=== PATIENT | female | born 1935 | race Caucasian/White ===

== ENCOUNTER 2018-06-17 11:01 | Day surgery (SDC) | payer MEDICARE, OTHER ==
[~2018-06-17] VITALS: Ht 172.7 cm; Wt 59.0 kg
[~2018-06-17 11:01] MED LIST: ASPIR 8181 MG PO; CALCIUM 600 +1 EAC3 PO; COMBIGAN EYE DRO5 ML OD; DORZOLAMIDE 2%10 ML OP; FISH OIL 1,2001 EACH PO; LIPITOR10 MG PO; NORVASC10 MG PO; OCUVITE TABLET1 EAC1 PO; PROLIA60 MG/1 ML SUB-Q; VITAMIN D31000 UNIT PO; XALATAN2.5 ML OD
--- NOTE | 2018-06-17 13:03 | NUR ---
06/17/18 1303 Babita Vincent 1235 PT ARRIVED IN PACU SLEEPY LAYING PRONE ON STRETCHER. BANDAID CDI ON L ILIAC CREST. NO C/O'S. 1250 RESTING.
== END 2018-06-17 13:58 | disposition home or self-care (01) ==
LOC: DS 11:01
PROVIDERS: Specialist
PROC: 079T3ZX Drainage of Bone Marrow, Percutaneous Approach, Diagnostic (ICD-10-PCS; 2018-06-17)
PROC: 07DR3ZX Extraction of Iliac Bone Marrow, Percutaneous Approach, Diagnostic (ICD-10-PCS; principal; 2018-06-17 12:00)
DX: C90.00 Multiple myeloma not having achieved remission (principal); M81.0 Age-related osteoporosis without current pathological fracture; D53.9 Nutritional anemia, unspecified; D72.819 Decreased white blood cell count, unspecified; Z79.899 Other long term (current) drug therapy
CPT/HCPCS: 80053; 82232; 83615; 83883; 85025; 88184; 88185; 88305; 88311; 88313; 88341; 88342; 88360; 88364; 88365; G0500; J2250; J3010; J7120

== ENCOUNTER 2021-06-03 10:49 | Emergency (ER) | payer MEDICARE, OTHER ==
[~2021-06-03] VITALS: Ht 172.7 cm; Wt 56.2 kg
[2021-06-03] MEDS ORDERED: AMLODIPINE BESYL5 MG PO (13:48)
--- NOTE | 2021-06-03 18:44 | EKG ---
[facility] [address] [facility] [place] [address] Signed Normal sinus rhythm Right bundle branch block Left anterior fascicular block Bifascicular block Abnormal ECG No previous ECGs available Confirmed by KHADAR HALE MD ([id number] on 06/03/2021 6:43:54 PM Electronically Signed By: KHADAR HALE MD 06/03/21 1844 PATIENT NAME: DAYLIN BURNETT Electrocardiogram DATE OF : 37 PHYSICIAN: KHADAR HALE MD REPORT #: [id number] REPORT IS CONFIDENTIAL AND NOT TO BE RELEASED WITHOUT AUTHORIZATION
== END 2021-06-03 14:21 | disposition home or self-care (01) ==
LOC: ED 10:49
DX: R55 Syncope and collapse (principal); Z91.018 Allergy to other foods; Z91.09 Other allergy status, other than to drugs and biological substances; Z79.899 Other long term (current) drug therapy
CPT/HCPCS: 36415; 80053; 81001; 85025; 93005; 93010; 99284-25

== ENCOUNTER 2023-12-21 10:51 | Emergency (ER) | payer MEDICARE ==
[~2023-12-21] VITALS: Ht 172.7 cm; Wt 61.7 kg
[~2023-12-21 10:51] MED LIST changes: +AMLODIPINE BESYL5 MG PO
[2023-12-21 11:18] LABS: BASOPHILS 0.1 % (0-2); EOSINOPHILS 0.4 % (0-6); HEMATOCRIT 32.7 % (35.0-50.0); HEMOGLOBIN 11.2 g/dL (12.0-18.0); LYMPHOCYTES 30.5 % (24-44); MCH 35.3 (27-36); MCHC 34.2 g/dl (30-36); MCV 103.2 fl (81-99); MONOCYTES 8.1 % (0-12); NEUTROPHILS 60.9 % (39-80); PLATELET COUNT 169 K/uL (140-440); RBC 3.17 M/ul (4.3-5.7); RDW 13.4 (10.5-15.0)
[2023-12-21 11:37] LABS: ALBUMIN/GLOBULIN RATIO 0.7 (1.1-2.4); ANION GAP 6.9 (7-21); BILIRUBIN, TOTAL 0.3 ng/dL (0.2-1.0); BUN/CREATININE RATIO 20.38 (6.0-28.6); CALCIUM 8.8 mg/dL (8.5-10.1); CREATININE, SERUM 1.03 mg/dL (0.55-1.02); POTASSIUM 3.9 mmol/L (3.5-5.1); PROTEIN, TOTAL 7.3 g/dL (6.4-8.2)
[2023-12-21 11:44] LABS: MAGNESIUM 1.9 mg/dL (1.8-2.4)
[2023-12-21 13:25] VITALS: BP 169/91
--- NOTE | 2023-12-22 19:17 | EKG ---
[facility] [address] [facility] [place] [address] Signed Normal sinus rhythm Right bundle branch block Left anterior fascicular block Bifascicular block Abnormal ECG When compared with ECG of 03-JUN-2021 10:50, No significant change was found Confirmed by Justin Peña MD ([id number]) on 12/22/2023 7:17:19 PM Electronically Signed By: JUSTIN PEÑA MD 12/22/23 1917 PATIENT NAME: DAYLIN BURNETT BHUPINDER Electrocardiogram DATE OF : 37 PHYSICIAN: JUSTIN PEÑA MD REPORT #: [id number] REPORT IS CONFIDENTIAL AND NOT TO BE RELEASED WITHOUT AUTHORIZATION
== END 2023-12-21 13:25 | disposition home or self-care (01) ==
LOC: ED 10:51
PROVIDERS: Emergency Medicine
DX: R55 Syncope and collapse (principal); E86.0 Dehydration; I10 Essential (primary) hypertension; Z91.048 Other nonmedicinal substance allergy status; Z79.899 Other long term (current) drug therapy
CPT/HCPCS: 36415; 70450; 80053; 83735; 84484; 85025; 93005; 93010; 99284-25